=== PATIENT | female | born 1990 | race American Indian/Alaskan Native ===

== ENCOUNTER 2025-06-22 12:01 | Emergency (ER) | payer BC, MEDICAID ==
[~2025-06-22] VITALS: Ht 160 cm; Wt 104.0 kg
[2025-06-22 12:03] VITALS: BP 127/98; PULSE 102; RESP 18; TEMP 98.1; O2SAT 100
== END 2025-06-22 13:54 | disposition left against medical advice (07) ==
LOC: EDBD 12:01 → ER 12:01
DX: Z00.8 Encounter for other general examination (principal)